=== PATIENT | female | born 1995 | race Caucasian/White ===

== ENCOUNTER 2023-03-18 09:05 | Outpatient (AMB) | payer OTHER, SELFPAY ==
--- NOTE | 2023-03-18 09:13 | MHC.OFFWIV ---
Intake Vital Signs 03/18/23 09:20 Weight 264 lb BP 120/80 Blood Pressure Location Rt brachial Position Sitting Pulse 86 Pulse Source Pulse Oximeter Temp 98.5 F Temp Source Oral Pulse Oximetry (%) 98 Oxygen Delivery Method Room Air Intake Visit Reasons: [employer], cough, congestion ([phone]) Intake Note: Patient here for head congestion, cough for about 3-4 days. Patient Tobacco Use Status: Never used Tobacco Allergies No Known Allergies Allergy (Verified 03/18/23 09:14) Do you need a note to return to daycare/school/sports/work: No HPI HPI Comments History of Present Illness Details This is a 27-year-old femalewho presents to the office today for sick visit. Patient complaining of sinus congestion/pressure, bilateral otalgia, and a cough with clear sputum production. She denies any fevers or chills. She denies any chest pain or shortness of breath. She denies any abdominal pain or nausea/vomiting / diarrhea. PFSH Social History Patient Tobacco Use Status: Never used Tobacco Review of Systems Const All systems reviewed & are unremarkable except as noted in HPI and below Reports no additional complaints Eyes Reports no additional complaints ENT Reports no additional complaints Card Reports no additional complaints Resp Reports no additional complaints GI Reports no additional complaints Reports no additional complaints Musc Reports no additional complaints Skin/Breast Reports system reviewed and no additional complaints, except as documented Neuro Reports no additional complaints Psych Reports no additional complaints Endo Reports no additional complaints Reggie/Lymph Reports no additional complaints Aller/Immun Reports no additional complaints Physical Exam Vital Signs: Last Vital Signs Temp 98.5 F 03/18/23 09:20 Pulse 86 03/18/23 09:20 BP 120/80 03/18/23 09:20 Pulse Ox 98 03/18/23 09:20 Oxygen Delivery Method Room Air 03/18/23 09:20 Const Other: Vital signs reviewed. Constitutional: Non-toxic appearing. No acute distress. Well-developed and well-nourished. HEENT: Normocephalic and atraumatic. Mild erythema of the tympanic membranes bilaterally. External auditory canals without erythema or edema bilaterally. Moist mucous membranes. No pharyngeal erythema or exudates. PERRL/EOMI. No mastoid erythema, tenderness, or swelling. Skin: Warm and dry. No rashes or lesions noted. Neck: Full and painless range of motion. No cervical lymphadenopathy. Cardio: Regular rate and rhythm. No murmurs, gallops, or rubs. No lower extremity edema. No JVD. Pulmonary: No respiratory distress. No accessory muscle usage. Clear to auscultation bilaterally without wheezing, crackles, or rhonchi. Gastrointestinal: Soft, nontender, and nondistended in all 4 quadrants. Normoactive bowel sounds in all 4 quadrants. Genitourinary: No CVA tenderness. Musculoskeletal: Normal range of motion in joints throughout the body. No deformity or other signs of injury. Neuro: Alert and oriented x4. Cranial nerves 2-12 grossly intact. No focal deficits appreciated. Psych: Normal mood and affect. Assessment & Plan Assessment & Plan (1) Acute rhinosinusitis: Code(s): J01.90 - Acute sinusitis, unspecified (2) Otitis media: Code(s): H66.90 - Otitis media, unspecified, unspecified ear Plan This is a 27-year-old female presenting to the office complaining of sinus congestion, bilateral otalgia, and cough. On physical examination, there is mild erythema of the tympanic membranes bilaterally but physical exam is otherwise benign. Her vital signs are stable and patient is overall nontoxic appearing. History and physical most consistent with acute rhinosinusitis and otitis media. Patient sent home on p.o. amoxicillin clavulanate twice daily x7 days. Recommended symptomatic management including rest, increased fluids, advil/tylenol for pain/fever, and over the counter throat lozenges/decongestants. Patient advised to follow up here or go to the emergency room for worsening/persistent symptoms including fever/chills, shortness of breath, or increased sputum purulence. Patient verbalized understanding and is agreeable with the plan. Orders: Orders SARS-CoV2/FLU/RSV Today R09.89 - Other specified symptoms and signs involving the circulatory and respiratory systems Coding Level of Care Code New Pt Level 3 (30899) Diagnoses Acute rhinosinusitis J01.90 Otitis media H66.90
[2023-03-18 09:20] VITALS: BP 120/80; PULSE 86; TEMP 36.9; O2SAT 98
== END 2023-03-18 09:54 | disposition home or self-care (01) ==
PROVIDERS: PCP Internal Medicine; Visit Provider Physician Assistant Medical
DX: J01.90 Acute sinusitis, unspecified (principal); H66.90 Otitis media, unspecified, unspecified ear
CPT/HCPCS: 99203

== ENCOUNTER 2023-03-18 11:42 | Outpatient (REF) | payer OTHER, SELFPAY ==
[2023-03-18 12:50] LABS: Influenza A PCR NEGATIVE (Negative); Influenza B PCR NEGATIVE (Negative); Resp Syncy Virus RNA Qual PCR NEGATIVE (Negative); SARS COV2 PCR INHOUSE NEGATIVE (Negative)
== END 2023-03-18 11:43 | disposition home or self-care (01) ==
LOC: HO.LNP 11:42
PROVIDERS: Visit Provider Physician Assistant Medical
DX: R09.89 Other specified symptoms and signs involving the circulatory and respiratory systems (principal); Z20.822 Contact with and (suspected) exposure to COVID-19
CPT/HCPCS: 0241U